=== PATIENT | female | born 1980 | race Caucasian/White ===

== ENCOUNTER 2023-01-27 16:21 | Inpatient (IN) | payer OTHER ==
[~2023-01-27] VITALS: Ht 165.1 cm; Wt 78.5 kg
[2023-02-27] MEDS ORDERED: OBSTETRIX ONE 38-1-2 (08:38)
[2023-02-27] MEDS ORDERED: ADULT LOW DOSE81 M1 PO (08:39)
[2023-03-02] MEDS ORDERED: KETO10TA2 PO (07:52)
[2023-03-02] MEDS ORDERED: OXYC1TAB9 PO (07:52)
== END 2023-03-02 12:57 | disposition home or self-care (01) | DRG 788 ==
LOC: OB/GYN 02-26 16:20 → LDR 02-27 07:20 → OB/GYN 02-27 18:19
PROVIDERS: Obstetrics & Gynecology; ADMIT Obstetrics & Gynecology Maternal & Fetal Medicine; ATTEND Obstetrics & Gynecology Maternal & Fetal Medicine
PROC: 4A1HXCZ Monitoring of Products of Conception, Cardiac Rate, External Approach (ICD-10-PCS; 2023-02-27)
PROC: 10D00Z1 Extraction of Products of Conception, Low, Open Approach (ICD-10-PCS; principal; 2023-02-27 17:00)
DX: O62.1 Secondary uterine inertia (principal); Z3A.40 40 weeks gestation of pregnancy; Z37.0 Single live birth; Z20.822 Contact with and (suspected) exposure to COVID-19

== ENCOUNTER 2023-02-18 15:50 | Outpatient (CLI) | payer OTHER | END 2023-02-18 16:22 | disposition home or self-care (01) | LOC: NST 15:50 | PROVIDERS: ATTEND Obstetrics & Gynecology Maternal & Fetal Medicine | DX: Z34.83 Encounter for supervision of other normal pregnancy, third trimester (principal) ==

== ENCOUNTER 2023-02-23 13:37 | Outpatient (CLI) | payer OTHER | END 2023-02-23 14:30 | disposition home or self-care (01) | LOC: NST 13:37 | PROVIDERS: ATTEND Obstetrics & Gynecology Maternal & Fetal Medicine | DX: Z34.83 Encounter for supervision of other normal pregnancy, third trimester (principal) ==

== ENCOUNTER 2023-02-26 13:54 | Outpatient (CLI) | payer OTHER ==
[2023-02-27] MEDS ORDERED: OBSTETRIX ONE 38-1-2 (08:38)
[2023-02-27] MEDS ORDERED: ADULT LOW DOSE81 M1 PO (08:39)
== END 2023-02-26 14:51 | disposition home or self-care (01) ==
LOC: NST 13:54
PROVIDERS: ATTEND Obstetrics & Gynecology Maternal & Fetal Medicine
DX: Z34.83 Encounter for supervision of other normal pregnancy, third trimester (principal)